=== PATIENT | male | born 1990 | race Caucasian/White ===

== ENCOUNTER 2017-04-21 17:07 | Emergency (ER) | payer BC, MEDICAID ==
[~2017-04-21 17:07] MED LIST: CLIN1CAP6 PO; PERI0.126 SWISH-SPIT
[2017-04-21 17:11] VITALS: BP_SYST 115; BP_SYST 140; BP_DIAS 74; BP_DIAS 94; PULSE 104; PULSE 140; RESP 16; RESP 17; TEMP 97.8; TEMP 98.4; O2SAT 98; O2SAT 99
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
[2017-04-21] MEDS ORDERED: HYDR-3533 PO (21:48)
[2017-04-21] MEDS ORDERED: DICL75TA PO (21:48)
[2017-04-21] MEDS ORDERED: CEPH500C PO (21:48)
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
[2017-04-21] MEDS ORDERED: CEPHALEXIN MONOHYDRATE 500 MG CAP PO ONE (22:00)
[2017-04-21] MEDS ORDERED: ACETAMINOPHEN/HYDROcodone 325 MG/5 MG TAB PO ONE (22:00)
[2017-04-21] MEDS ORDERED: TETANUS/DIPHTHERIA TOXOID ADULT 0.5 ML VIAL IM ONE (22:00)
[2017-04-21] MEDS ORDERED: IBUPROFEN 600 MG TAB PO ONE (22:00)
== END 2017-04-21 22:30 | disposition home or self-care (01) ==
LOC: NEPD 17:07
DX: S43.401A Unspecified sprain of right shoulder joint, initial encounter (principal); S40.011A Contusion of right shoulder, initial encounter; S40.811A Abrasion of right upper arm, initial encounter; Z23 Encounter for immunization; Z72.0 Tobacco use; Z79.899 Other long term (current) drug therapy; W05.2XXA Fall from non-moving motorized mobility scooter, initial encounter
CPT/HCPCS: 73030; 90471; 90714